=== PATIENT | female | born 1975 | race Two or more races ===

== ENCOUNTER 2017-02-09 06:17 | Outpatient (CLI) | payer OTHER ==
[~2017-02-09] VITALS: Ht 154.9 cm; Wt 69.0 kg
[2017-02-09 06:25] VITALS: BP 106/56
[2017-02-09] MEDS ORDERED: PNV1TAB.5 PO (06:30)
[2017-02-09] MEDS ORDERED: TERBUTALINE 1 MG/ML, 1ML ONE (06:33)
== END 2017-02-09 09:12 | disposition home or self-care (01) ==
LOC: LDOP 06:17
PROVIDERS: ATTEND Obstetrics & Gynecology
DX: O09.523 Supervision of elderly multigravida, third trimester (principal); O26.893 Other specified pregnancy related conditions, third trimester; O62.9 Abnormality of forces of labor, unspecified; O99.283 Endocrine, nutritional and metabolic diseases complicating pregnancy, third trimester; E04.9 Nontoxic goiter, unspecified; R10.9 Unspecified abdominal pain; Z3A.38 38 weeks gestation of pregnancy
CPT/HCPCS: 59025; 59412; 99211; G0463

== ENCOUNTER 2017-02-14 07:04 | Inpatient (IN) | payer OTHER ==
[~2017-02-14] VITALS: Ht 154.9 cm; Wt 68.0 kg
[~2017-02-14 07:04] MED LIST: PNV1TAB.5 PO
[2017-02-14 07:30] VITALS: BP 100/57
[2017-02-14 08:41] VITALS: BP 118/79
[2017-02-14] MEDS ORDERED: LACTATED RINGERS 1,000 ML IV SCH ×2 (09:03→09:30)
[2017-02-14] MEDS ORDERED: OXYTOCIN 30U/ 0.9% NaCL 500ML 500 ML IV SCH (09:03)
[2017-02-14] MEDS ORDERED: METOCLOPRAMIDE 5 MG/ML, 2ML ONE (09:25)
[2017-02-14] MEDS ORDERED: SODIUM CITRATE/CITRIC ACID 30 ML UDC ONE (09:25)
[2017-02-14] MEDS ORDERED: ONDANSETRON 2MG/ML, 2ML IVPush ONE (09:30)
[2017-02-14] MEDS ORDERED: CALCIUM CARBONATE 500 MG TAB.CHEW PO PRN (09:30)
[2017-02-14] MEDS ORDERED: LACTATED RINGERS 1,000 ML IVBOLUS ONE (09:30)
[2017-02-14] MEDS ORDERED: METOCLOPRAMIDE 5 MG/ML, 2ML IV ONE (09:30)
[2017-02-14] MEDS ORDERED: CEFAZOLIN PMX 1GM/50ML 50 ML IVPB ONE (09:30)
[2017-02-14] MEDS ORDERED: SODIUM CITRATE/CITRIC ACID 30 ML UDC PO ONE (09:30)
[2017-02-14] MEDS ORDERED: HYDROmorphone 2 MG/ML, 1ML ONE (09:42)
[2017-02-14] MEDS ORDERED: NEWBORN KIT ONE (09:42)
[2017-02-14] MEDS ORDERED: FENTANYL PF 100 MCG/2ML ONE ×2 (09:42→10:55)
[2017-02-14 09:52] LABS: HEMATOCRIT 36.8 % (34.6-47.8); WHITE BLOOD COUNT 9.4 x10^3/uL (3.4-10)
[2017-02-14] MEDS ORDERED: OXYTOCIN 30U/ 0.9% NaCL 500ML 500 ML ONE (09:56)
[2017-02-14] MEDS ORDERED: CEFAZOLIN 1,000 MG ONE (10:55)
[2017-02-14] MEDS ORDERED: ONDANSETRON 2MG/ML, 2ML ONE (10:55)
[2017-02-14] MEDS: OXYTOCIN 30U/ 0.9% NaCL 500ML 500 ML IV SCH ×2 (13:05→23:05)
[2017-02-14] MEDS: LACTATED RINGERS 1,000 ML IV SCH ×4 (13:05→23:05)
[2017-02-14] MEDS ORDERED: MISOPROSTOL 200 MCG TABLET PO PRN ×3 (13:30)
[2017-02-14] MEDS ORDERED: MISOPROSTOL 200 MCG TABLET SL PRN ×2 (13:30)
[2017-02-14] MEDS ORDERED: METOCLOPRAMIDE 5 MG/ML, 2ML IV PRN (13:30)
[2017-02-14] MEDS ORDERED: CARBOPROST TROMETHAMINE 250 MCG/ML, 1ML IM PRN (13:30)
[2017-02-14] MEDS ORDERED: OXYcodone/APAP 5/325MG TABLET PO PRN (13:30)
[2017-02-14] MEDS ORDERED: METHYLERGONOVINE 0.2 MG/ML IM PRN (13:30)
[2017-02-14] MEDS ORDERED: ONDANSETRON 2MG/ML, 2ML IV PRN (13:30)
[2017-02-14] MEDS ORDERED: MISOPROSTOL 200 MCG TABLET PR PRN ×4 (13:30)
[2017-02-14] MEDS ORDERED: ACETAMINOPHEN 325 MG TABLET PO PRN (13:30)
[2017-02-14 15:10] VITALS: BP 115/73
[2017-02-14] MEDS: KETOROLAC 30 MG/1 ML IV SCH ×2 (16:27→22:24)
[2017-02-14 19:40] VITALS: BP 111/73
[2017-02-14 19:43] LABS: HEMATOCRIT 32.8 % (34.6-47.8); HEMOGLOBIN 10.7 g/dL (11.7-16.4); WHITE BLOOD COUNT 14.9 x10^3/uL (3.4-10)
[2017-02-14] MEDS: OXYcodone/APAP 5/325MG TABLET PO PRN (22:28)
[2017-02-15] VITALS: BP 100/66
[2017-02-15] MEDS: OXYcodone/APAP 5/325MG TABLET PO PRN (02:26)
[2017-02-15 04:08] VITALS: BP 109/65
[2017-02-15] MEDS: KETOROLAC 30 MG/1 ML IV SCH ×4 (04:18→23:22)
[2017-02-15] MEDS: LACTATED RINGERS 1,000 ML IV SCH ×5 (05:05→21:05)
[2017-02-15 08:05] VITALS: BP 100/62
[2017-02-15] MEDS: OXYTOCIN 30U/ 0.9% NaCL 500ML 500 ML IV SCH ×2 (09:05→19:05)
[2017-02-15] MEDS: PRENATAL VIT/IRON/FA 1 EACH TABLET PO SCH (11:05)
[2017-02-15] MEDS: OXYcodone/APAP 10/325MG TABLET PO PRN ×2 (11:05→18:37)
[2017-02-15] MEDS: DOCUSATE 100 MG CAPSULE PO PRN (11:06)
[2017-02-15 19:55] VITALS: BP 109/64
[2017-02-16] MEDS: OXYcodone/APAP 5/325MG TABLET PO PRN ×5 (00:31→22:59)
[2017-02-16] MEDS: LACTATED RINGERS 1,000 ML IV SCH ×2 (05:05)
[2017-02-16] MEDS: OXYTOCIN 30U/ 0.9% NaCL 500ML 500 ML IV SCH (05:05)
[2017-02-16] MEDS: KETOROLAC 30 MG/1 ML IV SCH ×2 (05:20→11:10)
[2017-02-16 07:18] VITALS: BP 113/70
[2017-02-16] MEDS: PRENATAL VIT/IRON/FA 1 EACH TABLET PO SCH (08:45)
[2017-02-16] MEDS: DOCUSATE 100 MG CAPSULE PO PRN ×2 (08:45→22:59)
[2017-02-16] MEDS: IBUPROFEN 800 MG TABLET PO PRN (17:28)
[2017-02-16 21:01] VITALS: BP 111/69
[2017-02-17] MEDS: IBUPROFEN 800 MG TABLET PO PRN ×2 (03:16→11:28)
[2017-02-17] MEDS: OXYcodone/APAP 5/325MG TABLET PO PRN ×2 (06:59→11:28)
[2017-02-17 08:15] VITALS: BP 110/71
[2017-02-17] MEDS: DOCUSATE 100 MG CAPSULE PO PRN (09:28)
[2017-02-17] MEDS: PRENATAL VIT/IRON/FA 1 EACH TABLET PO SCH (09:28)
[2017-02-17] MEDS ORDERED: OXYC1TAB7 PO (11:58)
[2017-02-17] MEDS ORDERED: IBUP800T PO (11:59)
[2017-02-17] MEDS ORDERED: DOCU-30 PO (12:02)
== END 2017-02-17 14:09 | disposition home or self-care (01) | DRG 766 ==
LOC: LDOP 07:04 → LDIP 08:59 → 2NW 14:45
PROVIDERS: ADMIT Obstetrics & Gynecology; ATTEND Obstetrics & Gynecology
PROC: 10D00Z1 Extraction of Products of Conception, Low, Open Approach (ICD-10-PCS; principal; 2017-02-14)
DX: O32.0XX0 Maternal care for unstable lie, not applicable or unspecified (principal); O69.81X0 Labor and delivery complicated by cord around neck, without compression, not applicable or unspecified; Z3A.40 40 weeks gestation of pregnancy; Z37.0 Single live birth; Z91.013 Allergy to seafood
CPT/HCPCS: 36415; 82803; 85025; 86850; 86900; J0690; J1170; J1885; J2405; J3010; J2590; J2765; J7120